=== PATIENT | female | born 1990 | race African-American/Black ===

== ENCOUNTER 2022-05-16 08:53 | Emergency (ER) | payer OTHER ==
[~2022-05-16] VITALS: Ht 167.6 cm; Wt 127.0 kg
[2022-05-16 09:55] LABS: BILIRUBIN,URINE NEGATIVE (NEGATIVE); COLOR,URINE YELLOW (YELLOW); LEUKOCYTE ESTERASE ,URINE MODERATE (NEGATIVE); NITRITE, URINE NEGATIVE (NEGATIVE); PH,URINE 7.5 (5.0-8.0); PROTEIN,URINE TRACE mg/dl (NEGATIVE); UGLUCOSE NEGATIVE (NEGATIVE); UROBILINOGEN,URINE 0.2 EU/dL (0.2)
[2022-05-16] MEDS ORDERED: FAMOTIDINE/PF INJ 20 MG/2 ML VIAL IV ONE ×2 (10:00→10:10)
[2022-05-16] MEDS ORDERED: IV NS 0.9% 1,000 ML BAG IV ONE (10:00)
[2022-05-16] MEDS ORDERED: MAG HYDROX/AL HYDROX/SIMETH 30 ML UDC PO ONE (10:00)
[2022-05-16] MEDS ORDERED: ONDANSETRON HCL/PF 4 MG/2 ML VIAL IVP ONE (10:00)
[2022-05-16] MEDS ORDERED: ONDANSETRON HCL/PF 4 MG/2 ML VIAL ONE (10:10)
[2022-05-16] MEDS ORDERED: MAG HYDROX/AL HYDROX/SIMETH 30 ML UDC ONE (10:10)
[2022-05-16 10:18] LABS: BACTERIA,URINE 3+ /HPF (None Seen)
--- NOTE | 2022-05-16 10:18 | NUR ---
IV LINE ESTABLISHED ON RAC #20, BLOOD DRAWN AND SENT TO LAB
[2022-05-16 10:19] LABS: SQUAMOUS EPITHELIAL CELL,UR Few /HPF (None Seen)
--- NOTE | 2022-05-16 10:22 | NUR ---
PT TAKEN TO RADIOLOGY FOR CT
[2022-05-16 10:55] LABS: BASOPHILS # (AUTO) 0.1 K/uL (0.0-0.2); BASOPHILS % (AUTO) 0.5 % (0.0-2.0); EOSINOPHILS % (AUTO) 0.8 % (0.0-6.0); HEMATOCRIT 39 % (33-45); HEMOGLOBIN 12.7 g/dL (11.5-14.8); LYMPHOCYTES # (AUTO) 2.3 K/uL (0.8-4.8); MEAN CORPUSCULAR HGB CONC 33 g/dl (31.0-36.0); MEAN CORPUSCULAR VOLUME 87 fL (82-100); MONOCYTES # (AUTO) 0.7 K/uL (0.1-1.30); MONOCYTES % (AUTO) 6.1 % (2.0-12.0); NEUTROPHILS # (AUTO) 8.5 K/uL (1.8-8.9); NEUTROPHILS % (AUTO) 72.6 % (43.0-81.0); PLATELET COUNT (AUTO) 399 K/uL (150-450); RED BLOOD CELL COUNT(AUTO) 4.48 MIL/uL (4.0-5.2); WHITE BLOOD COUNT (AUTO) 11.7 K/uL (4.3-11.0)
[2022-05-16 10:59] LABS: CREATININE 0.7 mg/dL (0.6-1.3); POTASSIUM 4.1 mmol/L (3.5-5.1)
[2022-05-16] MEDS ORDERED: KETOROLAC TROMETHAMINE INJ 30 MG/ML VIAL IV ONE ×2 (11:00→12:00)
[2022-05-16] MEDS ORDERED: CEFTRIAXONE 1 G in IV D5W 50 ML IV ONE (11:00)
[2022-05-16 11:02] LABS: ALBUMIN 3.3 g/dL (3.4-5.0); BILIRUBIN,DIRECT 0.1 mg/dL (0.0-0.2); BILIRUBIN,TOTAL 0.5 mg/dL (0.2-1.0); TOTAL PROTEIN, SERUM 7.6 g/dL (6.4-8.2)
[2022-05-16] MEDS ORDERED: KETOROLAC TROMETHAMINE INJ 30 MG/ML VIAL ONE ×2 (11:23→12:03)
[2022-05-16] MEDS ORDERED: CEFTRIAXONE 1GM BAG (ER ONLY) 50 ML IV ONE (11:23)
[2022-05-16] MEDS ORDERED: HYDR-4303 PO (12:02)
[2022-05-16] MEDS ORDERED: NITR100C PO (12:02)
[2022-05-16] MEDS ORDERED: ONDA4TAB5 PO (12:02)
[2022-05-16] MEDS ORDERED: IBUP-2413 PO (12:02)
--- NOTE | 2022-05-16 12:16 | NUR ---
SECOND TORADOL SHOT ADMINISTERED INDICATED; PER MD, MONITOR PT'S PAIN AT THIS TIME BEFORE D/C.
--- NOTE | 2022-05-16 13:06 | NUR ---
IV removed. Catheter intact and site benign. Pressure and 4x4 applied to site. No bleeding noted.Patient discharged to home in stable condition. Written and verbal after care instructions given. Patient verbalizes understanding of instruction.
[2022-05-16 13:20] VITALS: BP 136/82
== END 2022-05-16 13:20 | disposition home or self-care (01) ==
LOC: ER 08:59
DX: N20.0 Calculus of kidney (principal); N39.0 Urinary tract infection, site not specified; Z90.49 Acquired absence of other specified parts of digestive tract; Z88.0 Allergy status to penicillin; Z79.899 Other long term (current) drug therapy
CPT/HCPCS: 99284; 74176; 96365; 96375; 96361; 96376; 85025; 80048; 87077; 87086; 83690; 80076; 84703; 81001; 36415; J3490; J0696 ×2; J1885 ×2; J2405; J7060; J7030

== ENCOUNTER 2022-08-06 17:31 | Inpatient (IN) | payer OTHER ==
[~2022-08-06] VITALS: Ht 172.7 cm; Wt 154.2 kg
[~2022-08-06 17:31] MED LIST: HYDR-4303 PO; IBUP-2413 PO; NITR100C PO; ONDA4TAB5 PO
--- NOTE | 2022-08-06 17:40 | NUR ---
RECEIVED PT 32 YRS FEMALE CAME FROM HOME C/O NAUSEA AND VOMITION X 1DAY TODAY
--- NOTE | 2022-08-06 18:11 | NUR ---
UA SENT TO LAB
[2022-08-06] MEDS ORDERED: KETOROLAC TROMETHAMINE 15 MG/ML VIAL ONE (18:15)
[2022-08-06] MEDS ORDERED: ONDANSETRON HCL/PF 4 MG/2 ML VIAL ONE ×2 (18:15→19:58)
[2022-08-06] MEDS ORDERED: KETOROLAC TROMETHAMINE INJ 30 MG/ML VIAL IV ONE ×2 (18:30→20:30)
[2022-08-06] MEDS ORDERED: IV NS 0.9% 1,000 ML BAG IV ONE (18:30)
[2022-08-06] MEDS ORDERED: ONDANSETRON HCL/PF 4 MG/2 ML VIAL IVP ONE (18:30)
--- NOTE | 2022-08-06 18:30 | NUR ---
INSERTED ANGO CATHETER G 20 ON RT AC BLOOD DROW AND SENT TO LAB
[2022-08-06 19:01] LABS: BILIRUBIN,URINE NEGATIVE (NEGATIVE); COLOR,URINE YELLOW (YELLOW); LEUKOCYTE ESTERASE ,URINE 3+ (NEGATIVE); NITRITE, URINE NEGATIVE (NEGATIVE); PH,URINE 6.5 (5.0-8.0); PROTEIN,URINE 1+ mg/dl (NEGATIVE); UGLUCOSE NEGATIVE (NEGATIVE); UROBILINOGEN,URINE 0.2 EU/dL (0.2)
[2022-08-06 19:09] LABS: ALBUMIN 3.6 g/dL (3.4-5.0); BILIRUBIN,DIRECT 0.1 mg/dL (0.0-0.2); BILIRUBIN,TOTAL 0.4 mg/dL (0.2-1.0); CALCIUM, SERUM 8.5 mg/dL (8.5-10.1); CREATININE 1.1 mg/dL (0.6-1.3); POTASSIUM 3.3 mmol/L (3.5-5.1); TOTAL PROTEIN, SERUM 7.9 g/dL (6.4-8.2)
--- NOTE | 2022-08-06 19:34 | NUR ---
HAND OFF WILD PABLO
--- NOTE | 2022-08-06 19:34 | NUR ---
TO CT MALONE OF ABDOMIN HOANG TAPIA
[2022-08-06] MEDS ORDERED: ONDANSETRON HCL/PF 4 MG/2 ML VIAL IV ONE (19:40)
[2022-08-06 19:51] LABS: BASOPHILS % (AUTO) 0.3 % (0.0-2.0); EOSINOPHILS % (AUTO) 0.1 % (0.0-6.0); HEMATOCRIT 39 % (33-45); HEMOGLOBIN 12.5 g/dL (11.5-14.8); LYMPHOCYTES # (AUTO) 1.4 K/uL (0.8-4.8); LYMPHOCYTES % (AUTO) 9.6 % (20.0-44.0); MEAN CORPUSCULAR HGB CONC 32 g/dl (31.0-36.0); MEAN CORPUSCULAR VOLUME 89 fL (82-100); MONOCYTES # (AUTO) 0.6 K/uL (0.1-1.30); MONOCYTES % (AUTO) 4.3 % (2.0-12.0); NEUTROPHILS # (AUTO) 12.5 K/uL (1.8-8.9); NEUTROPHILS % (AUTO) 85.7 % (43.0-81.0); PLATELET COUNT (AUTO) 413 K/uL (150-450); RED BLOOD CELL COUNT(AUTO) 4.35 MIL/uL (4.0-5.2); WHITE BLOOD COUNT (AUTO) 14.6 K/uL (4.3-11.0)
[2022-08-06 19:57] LABS: BACTERIA,URINE 4+ /HPF (None Seen); RBC,URINE 51-80 /HPF (0-2); SQUAMOUS EPITHELIAL CELL,UR 21-50 /HPF (None Seen); WBC,URINE 51-80 /HPF (0-3)
--- NOTE | 2022-08-06 20:15 | NUR ---
PA ON PHONE WITH UROLOGY DR THOMPSON
[2022-08-06] MEDS ORDERED: CEFTRIAXONE 1 G in IV D5W 50 ML IV ONE (20:30)
[2022-08-06] MEDS ORDERED: TAMSULOSIN 0.4 MG CAP.SR.24H PO ONE (20:30)
[2022-08-06] MEDS ORDERED: KETOROLAC TROMETHAMINE INJ 30 MG/ML VIAL ONE (21:04)
[2022-08-06] MEDS ORDERED: CEFTRIAXONE 1GM BAG (ER ONLY) 50 ML IV ONE (21:04)
[2022-08-06] MEDS ORDERED: TAMSULOSIN 0.4 MG CAP.SR.24H ONE (21:05)
[2022-08-06] MEDS ORDERED: METOCLOPRAMIDE HCL 10 MG/2 ML VIAL ONE (21:22)
[2022-08-06] MEDS ORDERED: IV NS 0.9% 500 ML BAG IV ONE (21:30)
[2022-08-06] MEDS ORDERED: METOCLOPRAMIDE HCL 10 MG/2 ML VIAL IV ONE (21:30)
[2022-08-06] MEDS ORDERED: ACETAMINOPHEN 325 MG TABLET PO PRN (23:00)
[2022-08-06] MEDS ORDERED: MAG HYDROX/AL HYDROX/SIMETH 30 ML UDC PO PRN (23:00)
[2022-08-06] MEDS ORDERED: MAGNESIUM HYDROXIDE 30 ML UDC PO PRN (23:00)
[2022-08-06] MEDS ORDERED: ZOLPIDEM TARTRATE 5 MG TABLET PO PRN (23:00)
[2022-08-06] MEDS ORDERED: POTASSIUM CHLORIDE 20 MEQ TAB.PRT.SR PO ONE (23:00)
[2022-08-06] MEDS ORDERED: Z GUARD REMEDY 4 OZ OINT TP PRN (23:00)
--- NOTE | 2022-08-07 00:02 | NUR ---
MS 310-1
[2022-08-07] MEDS: ONDANSETRON HCL/PF 4 MG/2 ML VIAL IVP PRN ×2 (00:32→12:25)
--- NOTE | 2022-08-07 00:45 | NUR ---
REPORT GIVEN TO RICHELLE
--- NOTE | 2022-08-07 01:27 | NUR ---
PT TRANSPORTED TO ROOM 310 VIA WHEELCHAIR IN STABLE CONDITION
[2022-08-07 01:30] VITALS: BP 155/117
--- NOTE | 2022-08-07 01:30 | NUR ---
MS DIRECTOR PATIENT ACCOUNTING NOTES RECEIVED PATIENT FROM ED VIA WHEELCHAIR AT 0118 UNDER THE CARE OF LATONYA ALVAREZ NP W/ DX OF INFECTED RENAL STONE. PATIENT WAS ACCOMPANIED BY HER . INFORMATION OBTAINED FROM PATIENT AND SPOUSE. PATIENT IS A/O X4. WAS BROUGHT TO THE ER LAST FOR NEPHROLITHIASIS AND WAS ADVISED TO F/U WITH PCP BUT PT DIDN'T GO. BREATHING IS EVEN AND NON-LABORED ON ROOM AIR. C/O NAUSEA AND CONTINUOUS VOMITING. VERBALIZED SHE IS HAVING PAIN ON THE LEFT LOWER SIDE OF HER ABDOMEN AND BACK. HAS RIGHT ANTECUBITAL IV ACCESS #20G AND SALINE LOCKED. NO S/S OF INFILTRATION NOTED. AMBULATORY. V/S TAKEN. PATIENT AND SPOUSE DENIES ANY SKIN ISSUE. CURRENTLY NPO. ALL BELONGINGS ACCOUNTED FOR. ORIENTED PATIENT TO UNIT AND STAFF. DISCUSSED POC WITH SPOUSE, VERBALIZED UNDERSTANDING. SAFETY PRECAUTIONS IN PLACE: BED LOW AND LOCKED, SIDE RAILS UP X2, CALL LIGHT WITHIN REACH. WILL CONTINUE POC.
[2022-08-07] MEDS: IV NS 0.9% 1,000 ML IV PRN ×2 (01:48→18:25)
[2022-08-07] MEDS: MORPHINE SULFATE INJ 2 MG/ML DISP.SYRIN IV PRN ×3 (02:21→17:03)
--- NOTE | 2022-08-07 02:30 | NUR ---
MS RN NOTES PT C/O LEFT LOWER ABDOMINAL AND BACK PAIN 06/16. ADMINISTERED PRN MORPHINE, WILL CONTINUE TO MONITOR.
[2022-08-07 06:44] LABS: BASOPHILS % (AUTO) 0.2 % (0.0-2.0); CALCIUM, SERUM 7.9 mg/dL (8.5-10.1); CREATININE 0.8 mg/dL (0.6-1.3); HEMATOCRIT 33 % (33-45); HEMOGLOBIN 10.9 g/dL (11.5-14.8); LYMPHOCYTES # (AUTO) 1.5 K/uL (0.8-4.8); LYMPHOCYTES % (AUTO) 12.6 % (20.0-44.0); MAGNESIUM 1.8 mg/dL (1.8-2.4); MEAN CORPUSCULAR HGB CONC 33 g/dl (31.0-36.0); MEAN CORPUSCULAR VOLUME 89 fL (82-100); MONOCYTES # (AUTO) 0.5 K/uL (0.1-1.30); MONOCYTES % (AUTO) 4.6 % (2.0-12.0); NEUTROPHILS # (AUTO) 9.7 K/uL (1.8-8.9); NEUTROPHILS % (AUTO) 82.6 % (43.0-81.0); PHOSPHORUS 4.2 mg/dL (2.5-4.9); PLATELET COUNT (AUTO) 363 K/uL (150-450); POTASSIUM 3.8 mmol/L (3.5-5.1); RED BLOOD CELL COUNT(AUTO) 3.72 MIL/uL (4.0-5.2); WHITE BLOOD COUNT (AUTO) 11.7 K/uL (4.3-11.0)
[2022-08-07] MEDS ORDERED: KETOROLAC TROMETHAMINE INJ 30 MG/ML VIAL IV PRN (07:00)
--- NOTE | 2022-08-07 07:00 | NUR ---
MS RN CLOSING NOTES PATIENT LAYING IN BED ASLEEP, EASY TO AROUSE. VERBALIZED HER PAIN AND N/V IMPROVED, REFUSED ANY PRN MEDS AT THIS TIME. STABLE THROUGHOUT THE SHIFT. AFEBRILE. HAS RIGHT ANTECUBITAL IV ACCESS #20G WITH NS RUNNING AT 75 ML/HR. INTACT, PATENT AND FLUSHING. STILL ON NPO FOR POSSIBLE STENT PLACEMENT. SAFETY PRECAUTIONS MAINTAINED. WILL ENDORSE TO NEXT SHIFT FOR ERIN.
--- NOTE | 2022-08-07 07:10 | NUR ---
MS RN OPENING NOTES: RECEIVED PATIENT IN BED ASLEEP EASILY AROUSED WITH STIMULI. PATIENT A/O X3-4 AND ABLE TO VERBALIZED NEEDS. NO SOB OR CARDIAC DISTRESS NOTED ON ROOM AIR AND TOLERATING WELL. DENIES PAIN AT THIS TIME. IV ACCESS ON RAC GAUGE 20, PATENT INTACT AND INFUSING NS @75 ML/HR. MAINTAINED NPO. SAFETY MEASURES MAINTAINED: BED LOCKED AND LOWEST POSITION SIDE RAILS UP X 2. CALL ;LIGHT IN EASY REACH FOR HELP AND WILL MONITOR ACCORDINGLY.
[2022-08-07] MEDS ORDERED: POTASSIUM CHLORIDE 20 MEQ TAB.PRT.SR PO ONE (09:00)
[2022-08-07] MEDS ORDERED: CEFTRIAXONE 1 G in IV D5W 50 ML IV SCH (09:00)
[2022-08-07] MEDS: PANTOPRAZOLE 40 MG VIAL IV SCH (09:03)
[2022-08-07] MEDS: CEFTRIAXONE 2 G in IV D5W 100 ML IV SCH (09:30)
[2022-08-07] MEDS ORDERED: ANESTHESIA TRAY IN PYXIS 1 EA TRAY MC ONE (12:14)
[2022-08-07] MEDS ORDERED: SEVOFLURANE 250 ML BOTTLE IH ONE (12:22)
[2022-08-07] MEDS ORDERED: IOHEXOL 50 ML IV ONE (13:49)
--- NOTE | 2022-08-07 14:23 | NUR ---
RN NOTES: PATIENT WILL GO FOR SURGERY, PATIENT ALERT AND ORIENTED X4 AND ABLE TO VERBALIZED NEEDS. PT ACCOMPANIED BY TRANSPORTER AND RN. BELONGINGS CELLPHONE LEFT IN THE STATION PROPERLY LABELLED, JEWERLIES CARRIED BY FAMILY.
--- NOTE | 2022-08-07 15:55 | NUR ---
RN NOTES: RECEIVED PATIENT FROM SURGERY, S/P CYSTOSCOPY WITH J STENT INSERTION WITH FLUOROSCOPY. PATIENT ALERT AND ORIENTED X 4 AND ABLE TO VERBALIZED NEEDS. PT COMPLAINED MILD DISCOMFORT ON HER ABDOMEN AND COMPLAINING OF SORE THROAT , FROM GENERAL ANESTHESIA. RECEIVED ENDORSEMENT FROM BEV GAMA PT S/P CYSTOSCOPY WITH J STENT INSERTION WITH FLUOROSCOPY UNDER GENERAL ANESTHESIA, DR SANDRA SANTOS FLOMAX, RESUME REGULAR DIET. I ASKED BEV GAMA FOR POST OF OR DC INSTRUCTIONS PER RN PT IS AWARE THAT SHE NEEDS TO FOLLOW UP WITH PCP, AND UROLOGIST AND MAXIMUM STENT CAN BE INSIDE HER BODY IS 6 MONTHS AND NEEDS TO BE REMOVED, DID NOT DO SURGERY THE STONE STILL THERE, PT IS AWARE. I GAVE BACK PT'S PHONE. PROVIDED COLD WATER AND APPLE JUICE. PATIENT PEED WITH TINGED OF BLOOD. VS WNL AND WILL MONITOR ACCORDINGLY.
[2022-08-07 16:00] VITALS: BP_SYST 130; BP_SYST 134; BP_DIAS 72; BP_DIAS 80
[2022-08-07 16:30] VITALS: BP 132/82
[2022-08-07] MEDS ORDERED: MENTHOL/CETYLPYRD (CEPACOL) 1 LOZ LOZENGE PO PRN (16:30)
--- NOTE | 2022-08-07 16:30 | NUR ---
RN NOTES: PATIENT COMPLAINING SORE THROAT, INFORMED DR STATON AND ORDERED CEPACOL LOZENGES EVERY 2 HRS FOR SORE THROAT. ORDERS NOTED AND CARRIED OUT.
[2022-08-07 17:00] VITALS: BP 131/85
[2022-08-07 18:00] VITALS: BP 134/82
--- NOTE | 2022-08-07 18:43 | NUR ---
MS RN CLOSING NOTES: PATIENT IN BED, AWAKE. A/O X4 AND ABLE TO VERBALIZED NEEDS. NO SOB OR CARDIAC DISTRESS NOTED, ON PAIN MANAGEMENT ORDERED. ON ROOM AIR AND TOLERATING WELL. MAINTAINED ON REGULAR DIET AND PT ABLE TO EAT 50-75% OF HER MEAL. IV ACCESS ON RAC GAUGE 20 PATENT,INTACT AND INFUSING IV FLUID NS 1L @75ML/HR. SAFETY MEASURES MAINTAINED: BED LOCKED AND IN LOWEST POSITION, SIDE RAILS UP X 2. CALL LIGHT AND BED SIDE TABLE IN EASY REACH. ENDORSED TO FOOD PROCESSING PLANT MANAGER RN FOR CONTINUITY OF CARE.
--- NOTE | 2022-08-07 19:30 | NUR ---
MS RN OPENING NOTE RECEIVED PATIENT AWAKE, ALERT AND ORIENTED X4 WITH AT BEDSIDE. AFEBRILE AND NOT IN ANY FORM OF ACUTE DISTRESS. BREATHING EVEN AND NON LABORED. S/P CYSTOSCOPY WITH DOUBLE J STENT INSERTION, NO C/O PAIN OR DISCOMFORT AT THIS TIME. WITH IV ACCESS ON RAC 20G RUNNING WITH NS AT 75ML/HR. SAFETY MEASURES IN PLACE. KEPT BED IN LOCKED AND IN LOW POSITION. SIDE RAILS UP X2. ADVISED TO USE THE CALL LIGHT WHEN IN NEED OF ASSISTANCE.
[2022-08-07 20:00] VITALS: BP 102/65
[2022-08-07] MEDS: HYDROCODONE/APAP 5/325MG TABLET PO PRN (21:47)
[2022-08-07] MEDS ORDERED: TAMSULOSIN 0.4 MG CAP.SR.24H PO SCH (22:00)
[2022-08-08] MEDS: HYDROCODONE/APAP 5/325MG TABLET PO PRN (03:57)
--- NOTE | 2022-08-08 06:30 | NUR ---
MS RN CLOSING NOTE PATIENT ASLEEP BUT EASY TO AROUSE AND RESPONSIVE. AFEBRILE AND NOT IN ANY FORM OF ACUTE DISTRESS. BREATHING EVEN AND NON LABORED. S/P CYSTOSCOPY WITH DOUBLE J STENT INSERTION, MONITORED FOR ANY ADVERSE REACTION. WITH IV ACCESS ON RAC 20G RUNNING WITH NS AT 75ML/HR. MEDICATED ORDERED. OFFERED AND ENCOURAGED FLUIDS TOLERATED. SAFETY MEASURES IN PLACE. KEPT BED IN LOCKED AND IN LOW POSITION. SIDE RAILS UP X2. ADVISED TO USE THE CALL LIGHT WHEN IN NEED OF ASSISTANCE. CONSTANT VISUAL CHECK DONE TO ENSURE SAFETY. ALL NURSING NEEDS ATTENDED. ENDORSED TO INCOMING NURSE FOR CONTINUITY OF CARE.
[2022-08-08] MEDS: IV NS 0.9% 1,000 ML IV PRN (06:49)
[2022-08-08 07:00] VITALS: BP 130/72
[2022-08-08] MEDS: CEFTRIAXONE 2 G in IV D5W 100 ML IV SCH (08:16)
[2022-08-08] MEDS: MORPHINE SULFATE INJ 2 MG/ML DISP.SYRIN IV PRN (08:20)
[2022-08-08] MEDS: PANTOPRAZOLE 40 MG VIAL IV SCH (08:22)
[2022-08-08 09:01] LABS: CALCIUM, SERUM 8.3 mg/dL (8.5-10.1); CREATININE 0.8 mg/dL (0.6-1.3); POTASSIUM 3.8 mmol/L (3.5-5.1)
--- NOTE | 2022-08-08 15:33 | NUR ---
GRANTS ASSISTANT NOTE PATIENT DISCHARGED FROM FACILITY VIA AMBULANCE @ 7711. TRANSFERRED TO [facility]. REPORT GIVEN TO RECEIVING NURSE, BRI. ALL BELONGINGS AND PERSONAL ITEMS TAKEN WITH PATIENT Addendum: 08/08/22 at 1658 by TACO ELAM RN PATIENT DISCHARGED FROM FACILITY VIA PRIVATE CAR @ 1650. IV TAKEN OUT AND IV SITE FREE OF TRAUMA OR BLEEDING. ALL BELONGINGS AND PERSONAL ITEMS TAKEN WITH PATIENT.
[2022-08-08] MEDS ORDERED: ZOLP5TAB2 PO (15:48)
[2022-08-08] MEDS ORDERED: HYDR-3972 PO (15:48)
[2022-08-08] MEDS ORDERED: ONDA4TAB5 PO (15:48)
[2022-08-08] MEDS ORDERED: CEPH500C2 PO (15:48)
[2022-08-09] MEDS ORDERED: PANTOPRAZOLE 40 MG TABLET.DR PO SCH (07:30)
== END 2022-08-08 16:50 | disposition home or self-care (01) | DRG 463 ==
LOC: ER 17:36 → MED 08-07 00:44
PROVIDERS: ADMIT Nurse Practitioner Acute Care; ATTEND Nurse Practitioner Acute Care
PROC: 0T778DZ Dilation of Left Ureter with Intraluminal Device, Via Natural or Artificial Opening Endoscopic (ICD-10-PCS; principal; 2022-08-07)
DX: N13.6 Pyonephrosis (principal); K76.0 Fatty (change of) liver, not elsewhere classified; Z68.43 Body mass index [BMI] 50.0-59.9, adult; E66.01 Morbid (severe) obesity due to excess calories; E87.6 Hypokalemia; Z20.822 Contact with and (suspected) exposure to COVID-19; Z88.0 Allergy status to penicillin; Z90.49 Acquired absence of other specified parts of digestive tract; Z79.899 Other long term (current) drug therapy; Z87.442 Personal history of urinary calculi; N39.0 Urinary tract infection, site not specified; B96.89 Other specified bacterial agents as the cause of diseases classified elsewhere
CPT/HCPCS: 36415; 74018; 80048-TC; 80076-TC; 81001; 83605-TC; 83690-TC; 83735-TC; 84100-TC; 84703-TC; 85025-TC; 87081-TC; 87086-TC; A4217; C1769; C2617; C9113; C9803; G0378; J0330; J0696; J1100; J1885; J2270; J2405; J2704; J2765; J3490; J7030; J7040; J7060; Q9967

== ENCOUNTER 2022-08-27 12:50 | Emergency (ER) | payer OTHER ==
[~2022-08-27] VITALS: Ht 170.2 cm; Wt 127.9 kg
[~2022-08-27 12:50] MED LIST changes: +CEPH500C2 PO; +HYDR-3972 PO; +ZOLP5TAB2 PO
--- NOTE | 2022-08-27 13:00 | NUR ---
BIBS C/O PERSISTENT NAUSEA/VOMITING,HEMATURIA AND FLANK PAIN SINCE SHE HAD RENAL STENT PLACED 08/07/22 UPSTAIRS. AMBULATORY, PLACED ON BED, IN PAIN 10/ PS
[2022-08-27] MEDS ORDERED: IV NS 0.9% 1,000 ML BAG IV ONE (14:30)
[2022-08-27] MEDS ORDERED: MORPHINE SULFATE INJ 2 MG/ML DISP.SYRIN IV ONE (14:30)
[2022-08-27] MEDS ORDERED: ONDANSETRON HCL/PF 4 MG/2 ML VIAL IVP ONE (14:30)
[2022-08-27] MEDS ORDERED: MORPHINE SULFATE INJ 4 MG/ML DISP.SYRIN ONE (14:33)
[2022-08-27] MEDS ORDERED: ONDANSETRON HCL/PF 4 MG/2 ML VIAL ONE ×2 (14:33→16:56)
--- NOTE | 2022-08-27 14:40 | NUR ---
PATIENT TAKEN TO CT VIA [facility]
--- NOTE | 2022-08-27 15:00 | NUR ---
BLOOD DRAWN AND SENT TO LAB
[2022-08-27 15:18] LABS: BASOPHILS # (AUTO) 0.1 K/uL (0.0-0.2); BASOPHILS % (AUTO) 0.7 % (0.0-2.0); EOSINOPHILS % (AUTO) 0.2 % (0.0-6.0); HEMATOCRIT 38 % (33-45); HEMOGLOBIN 12.5 g/dL (11.5-14.8); LYMPHOCYTES # (AUTO) 1.5 K/uL (0.8-4.8); LYMPHOCYTES % (AUTO) 15.1 % (20.0-44.0); MEAN CORPUSCULAR HGB CONC 33 g/dl (31.0-36.0); MEAN CORPUSCULAR VOLUME 88 fL (82-100); MONOCYTES # (AUTO) 0.6 K/uL (0.1-1.30); MONOCYTES % (AUTO) 5.6 % (2.0-12.0); NEUTROPHILS # (AUTO) 7.9 K/uL (1.8-8.9); NEUTROPHILS % (AUTO) 78.4 % (43.0-81.0); PLATELET COUNT (AUTO) 517 K/uL (150-450); RED BLOOD CELL COUNT(AUTO) 4.37 MIL/uL (4.0-5.2); WHITE BLOOD COUNT (AUTO) 10.1 K/uL (4.3-11.0)
[2022-08-27 15:36] LABS: CALCIUM, SERUM 8.8 mg/dL (8.5-10.1); CREATININE 0.8 mg/dL (0.6-1.3); POTASSIUM 3.8 mmol/L (3.5-5.1)
[2022-08-27 15:42] LABS: ALBUMIN 3.3 g/dL (3.4-5.0); BILIRUBIN,DIRECT 0.1 mg/dL (0.0-0.2); BILIRUBIN,TOTAL 0.4 mg/dL (0.2-1.0); TOTAL PROTEIN, SERUM 7.4 g/dL (6.4-8.2)
--- NOTE | 2022-08-27 15:47 | NUR ---
URINE SAMPLE SENT TO LAB
[2022-08-27 16:47] LABS: BILIRUBIN,URINE NEGATIVE (NEGATIVE); COLOR,URINE YELLOW (YELLOW); LEUKOCYTE ESTERASE ,URINE 1+ (NEGATIVE); NITRITE, URINE NEGATIVE (NEGATIVE); PH,URINE 8.5 (5.0-8.0); PROTEIN,URINE 1+ mg/dl (NEGATIVE); UGLUCOSE NEGATIVE (NEGATIVE); UROBILINOGEN,URINE 0.2 EU/dL (0.2)
[2022-08-27] MEDS ORDERED: ONDANSETRON HCL/PF - ER 4 MG/2 ML VIAL IV ONE (17:00)
[2022-08-27] MEDS ORDERED: ONDA4TAB11 PO (17:12)
[2022-08-27] MEDS ORDERED: CEFP200T14 PO (17:12)
[2022-08-27 17:14] LABS: BACTERIA,URINE 1+ /HPF (None Seen); RBC,URINE TOO NUMEROUS TO COUN /HPF (0-2); SQUAMOUS EPITHELIAL CELL,UR Few /HPF (None Seen); WBC,URINE 21-50 /HPF (0-3)
[2022-08-27 18:02] VITALS: BP 120/70
== END 2022-08-27 17:45 | disposition home or self-care (01) ==
LOC: ER 13:05
DX: N39.0 Urinary tract infection, site not specified (principal); R10.12 Left upper quadrant pain; R11.2 Nausea with vomiting, unspecified; Z87.442 Personal history of urinary calculi; Z90.49 Acquired absence of other specified parts of digestive tract; Z88.0 Allergy status to penicillin; Z79.899 Other long term (current) drug therapy
CPT/HCPCS: 99284; 74176; 96374; 96361; 96375; 96376; 85025; 80048; 87086; 83690; 80076; 84703; 81001; 36415; J2270; J2405 ×2; J7030

== ENCOUNTER 2022-10-24 21:43 | Inpatient (IN) | payer OTHER ==
[~2022-10-24] VITALS: Ht 167.6 cm; Wt 127.0 kg
[~2022-10-24 21:43] MED LIST changes: +CEFP200T14 PO; +ONDA4TAB11 PO
[2022-10-24] MEDS ORDERED: IV NS 0.9% 500 ML BAG IV ONE (23:00)
[2022-10-24] MEDS ORDERED: ONDANSETRON HCL/PF 4 MG/2 ML VIAL IVP ONE (23:00)
[2022-10-24] MEDS ORDERED: KETOROLAC TROMETHAMINE INJ 30 MG/ML VIAL IV ONE (23:00)
--- NOTE | 2022-10-24 23:00 | NUR ---
BIBWIFE. NAUSEA, VOMMITING AND LOWER BACK PAIN X YESTERDAY. DX WITH KIDNEY STONES IN AUGUST 2022 WITH STENT PLACEMENT B8UT HAS BEEN UNABLE TO FOLLOW UP WITH UROLOGY. DENIES ANY URINARY COMPLAINTS OR FEVERS. AWAKE AND ALERTX4 BREATHING UNLABORED. CHAGED INTO GOWN AND PLACED ON MONITOR AND V/S WNL.
[2022-10-24] MEDS ORDERED: ONDANSETRON HCL/PF 4 MG/2 ML VIAL ONE (23:02)
[2022-10-24] MEDS ORDERED: KETOROLAC TROMETHAMINE INJ 30 MG/ML VIAL ONE (23:02)
--- NOTE | 2022-10-24 23:13 | NUR ---
20g IV STARTED AT RAC. BLOOD DRAWN AND SENT TO LAB
[2022-10-24 23:25] LABS: BASOPHILS % (AUTO) 0.2 % (0.0-2.0); EOSINOPHILS % (AUTO) 0.2 % (0.0-6.0); HEMATOCRIT 41 % (33-45); HEMOGLOBIN 13.4 g/dL (11.5-14.8); LYMPHOCYTES # (AUTO) 2.1 K/uL (0.8-4.8); LYMPHOCYTES % (AUTO) 13.3 % (20.0-44.0); MEAN CORPUSCULAR HGB CONC 32 g/dl (31.0-36.0); MEAN CORPUSCULAR VOLUME 86 fL (82-100); MONOCYTES % (AUTO) 6.5 % (2.0-12.0); NEUTROPHILS # (AUTO) 12.6 K/uL (1.8-8.9); NEUTROPHILS % (AUTO) 79.8 % (43.0-81.0); PLATELET COUNT (AUTO) 508 K/uL (150-450); RED BLOOD CELL COUNT(AUTO) 4.79 MIL/uL (4.0-5.2); WHITE BLOOD COUNT (AUTO) 15.8 K/uL (4.3-11.0)
[2022-10-24 23:27] LABS: BILIRUBIN,URINE 2+ (NEGATIVE); COLOR,URINE YELLOW (YELLOW); LEUKOCYTE ESTERASE ,URINE 3+ (NEGATIVE); NITRITE, URINE NEGATIVE (NEGATIVE); PH,URINE 5.5 (5.0-8.0); PROTEIN,URINE 1+ mg/dl (NEGATIVE); UGLUCOSE NEGATIVE (NEGATIVE); UROBILINOGEN,URINE 0.2 EU/dL (0.2)
--- NOTE | 2022-10-24 23:45 | NUR ---
TRANSPORTED TO CT VIA [facility]
[2022-10-24 23:55] LABS: CALCIUM, SERUM 9.4 mg/dL (8.5-10.1); CREATININE 1.1 mg/dL (0.6-1.3); POTASSIUM 3.3 mmol/L (3.5-5.1)
[2022-10-25 00:11] LABS: BACTERIA,URINE Few /HPF (None Seen); SQUAMOUS EPITHELIAL CELL,UR Few /HPF (None Seen)
[2022-10-25 00:12] LABS: WBC,URINE 21-50 /HPF (0-3)
[2022-10-25] MEDS ORDERED: MORPHINE SULFATE INJ 4 MG/ML DISP.SYRIN ONE (00:29)
[2022-10-25] MEDS ORDERED: CIPROFLOXACIN IV RTU 200 ML IV ONE (00:29)
[2022-10-25] MEDS ORDERED: MORPHINE SULFATE INJ 2 MG/ML DISP.SYRIN IV ONE (00:30)
[2022-10-25] MEDS ORDERED: CIPROFLOXACIN IV RTU 400 MG in PREMIX 1 EA IV SCH (00:30)
[2022-10-25] MEDS ORDERED: ONDANSETRON HCL/PF 4 MG/2 ML VIAL ONE (00:38)
[2022-10-25] MEDS ORDERED: ONDANSETRON HCL/PF 4 MG/2 ML VIAL IV ONE (01:00)
[2022-10-25 01:10] LABS: ALBUMIN 3.8 g/dL (3.4-5.0); BILIRUBIN,DIRECT 0.2 mg/dL (0.0-0.2); BILIRUBIN,TOTAL 0.5 mg/dL (0.2-1.0); TOTAL PROTEIN, SERUM 8.6 g/dL (6.4-8.2)
[2022-10-25] MEDS ORDERED: MAG HYDROX/AL HYDROX/SIMETH 30 ML UDC ONE (01:48)
--- NOTE | 2022-10-25 01:50 | NUR ---
bayron collected and sent to lab
[2022-10-25] MEDS ORDERED: METOCLOPRAMIDE HCL 10 MG/2 ML VIAL ONE (01:58)
[2022-10-25] MEDS ORDERED: MAG HYDROX/AL HYDROX/SIMETH 30 ML UDC PO ONE (02:00)
[2022-10-25] MEDS ORDERED: METOCLOPRAMIDE HCL 10 MG/2 ML VIAL IV ONE (02:00)
--- NOTE | 2022-10-25 03:08 | NUR ---
MS 116-1
--- NOTE | 2022-10-25 03:38 | NUR ---
REPORT GIVEN TO DULCE
--- NOTE | 2022-10-25 04:35 | NUR ---
RN ADMITTING NOTE Received patient from ER via gurney accompanied by Laura PABLO and EMT, ambulated to bed with steady gait, pt AAO x 4, in no acute distress, breathing unlabored, saturation at 99% on room air, HR is 64. IV line at RAC 20g patent and flushing well, no s/s of infection or infiltration. Comprehensive assessment performed, no skin issues noted. Safety measures in place, bed is locked and at lowest position, HOB elevated, call light within reach of patient. Will continue to monitor. Awaiting MD orders.
--- NOTE | 2022-10-25 04:36 | NUR ---
PT TRANSPORTED TO 116 VIA GURNEY IN STABLE CONDITION
[2022-10-25 04:54] VITALS: BP 156/99
--- NOTE | 2022-10-25 04:57 | NUR ---
RN NOTE Dr Orta made aware patient now at unit. Awaiting admitting orders.
[2022-10-25] MEDS ORDERED: KETOROLAC TROMETHAMINE INJ 30 MG/ML VIAL IV PRN (06:00)
[2022-10-25] MEDS: IV NS 0.9% 1,000 ML IV PRN ×2 (06:16→17:25)
[2022-10-25] MEDS: MORPHINE SULFATE INJ 2 MG/ML DISP.SYRIN IV PRN ×4 (06:16→21:33)
[2022-10-25] MEDS: ENOXAPARIN SODIUM 40 MG/0.4 ML DISP.SYRIN SQ SCH (06:17)
[2022-10-25 08:00] VITALS: BP 143/88
[2022-10-25] MEDS: CIPROFLOXACIN IV RTU 400 MG in PREMIX 1 EA IV SCH ×2 (08:18→20:59)
[2022-10-25] MEDS: ACETAMINOPHEN 325 MG TABLET PO PRN (08:54)
[2022-10-25 16:00] VITALS: BP 135/67
--- NOTE | 2022-10-25 18:57 | NUR ---
RN OPENING NOTE PATIENT AWAKE SITTING IN HER BED, ON ROOM AIR O2 SAT 98% TOLERATING WELL ON ROOM AIR. PATIENT IS A/O X4. WILL MONITOR THE PATIENT THROUGHOUT THE SHIFT.
--- NOTE | 2022-10-25 18:58 | NUR ---
RN CLOSING NOTE PATIENT AWAKE SITTING IN HER BED, ON ROOM AIR O2 SAT 98% TOLERATING WELL ON ROOM AIR. PATIENT IS A/O X4. NO S/S OF SOB OR DISTRESS NOTED DURING THE SHIFT. PATIENT HAS LEFT FLANK PAIN DUE TO DISLODGED URETERAL STENT. PATIENT NEEDS PAIN MANAGEMENT MORPHINE 2 MG Q4 HRS PRN ADMINISTERED TO PATIENT TODAY 2 TIMES. WORKED WELL FOR PATIENT, SHE WAS SATISFIED. ALL SAFETY PRECAUTIONS IMPLEMENTED AND WILL INDORSE THE PATIENT TO [facility] PM NURSE FOR ERIN.
--- NOTE | 2022-10-25 19:00 | NUR ---
PATIENT STATED THAT SHE NOTED SOME SPOTTING WHEN SHE USED THE RESTROOM, AND IT IS NOT HER MENSTRUAL TIME NOW. DR. AMADOR NOTIFIED VIA TEXT MESSAGE ALSO THE REGIONAL DRIVER NURSE.
--- NOTE | 2022-10-25 19:30 | NUR ---
MS RN OPENING NOTE RECEIVED PATIENT FROM AM NURSE; ALERT AND ORIENTED X 4, ABLE TO MAKE NEEDS KNOWN; ON ROOM AIR BREATHING EVENLY AND NO RESPIRATORY DISTRESS NOTED; WITH IV ACCESS ON RAC G20 RUNNING WITH NS AT 75 ML/HR; ENCOURAGED VERBALIZATION OF NEEDS; SAFETY MEASURES IMPLEMENTED, BED IN LOW POSITION, LOCKED, SIDE RAILS UP X 2, CALL LIGHT WITHIN REACH; WILL CONTINUE TO MONITOR THROUGHOUT SHIFT
[2022-10-25 20:00] VITALS: BP 150/90
[2022-10-25] MEDS: ONDANSETRON HCL/PF 4 MG/2 ML VIAL IVP PRN (21:28)
--- NOTE | 2022-10-25 21:40 | NUR ---
MS RN NOTE PATIENT COMPLAINED OF PAIN WITH A SCORE OF 8/10, ADMINISTERED MORPHINE PRN ORDERED. PATIENT ALSO COMPLAINED OF NAUSEOUS FEELING AND WANTED TO TAKE MEDICATION FOR NAUSEA, ADMINISTERED ZOFRAN PRN. PATIENT TOLERATED WELL AND IS CURRENTLY SLEEPING
[2022-10-26] MEDS: ONDANSETRON HCL/PF 4 MG/2 ML VIAL IVP PRN ×3 (03:00→18:24)
[2022-10-26] MEDS: MORPHINE SULFATE INJ 2 MG/ML DISP.SYRIN IV PRN ×3 (03:00→17:53)
--- NOTE | 2022-10-26 03:30 | NUR ---
MS RN NOTE PATIENT WOKE UP AROUND 0240H AND WENT TO THE RESTROOM TO PEE. AFTERWARDS, PATIENT COMPLAINED OF PAIN AND NAUSEOUS FEELING. INFORMED HER THAT THE NEXT DOSE OF ZOFRAN WILL BE AT 0330H BUT INSISTED TO TAKE THE MEDICATION EARLIER. CHARGE NURSE MADE AWARE. GAVE MORPHINE AND ZOFRAN PRN AT 0300H; PATIENT IN BED, TOLERATED WELL; WILL CONTINUE TO MONITOR
[2022-10-26 04:00] VITALS: BP 150/90
[2022-10-26] MEDS: ENOXAPARIN SODIUM 40 MG/0.4 ML DISP.SYRIN SQ SCH (06:00)
--- NOTE | 2022-10-26 06:03 | NUR ---
MS RN NOTE PATIENT HAD AN EPISODE OF SPOTTING EARLIER. HENCE LOVENOX DOSE HELD PER MD. CHARGE NURSE MADE AWARE.
[2022-10-26 06:10] LABS: BASOPHILS # (AUTO) 0.1 K/uL (0.0-0.2); BASOPHILS % (AUTO) 0.7 % (0.0-2.0); EOSINOPHILS % (AUTO) 0.6 % (0.0-6.0); HEMATOCRIT 39 % (33-45); HEMOGLOBIN 12.5 g/dL (11.5-14.8); LYMPHOCYTES # (AUTO) 1.7 K/uL (0.8-4.8); LYMPHOCYTES % (AUTO) 14.3 % (20.0-44.0); MEAN CORPUSCULAR HGB CONC 32 g/dl (31.0-36.0); MEAN CORPUSCULAR VOLUME 87 fL (82-100); NEUTROPHILS # (AUTO) 9.2 K/uL (1.8-8.9); NEUTROPHILS % (AUTO) 76.4 % (43.0-81.0); PLATELET COUNT (AUTO) 425 K/uL (150-450); RED BLOOD CELL COUNT(AUTO) 4.46 MIL/uL (4.0-5.2)
[2022-10-26 06:39] LABS: CALCIUM, SERUM 8.7 mg/dL (8.5-10.1); CREATININE 1.1 mg/dL (0.6-1.3); PHOSPHORUS 2.9 mg/dL (2.5-4.9); POTASSIUM 3.3 mmol/L (3.5-5.1)
[2022-10-26] MEDS: IV NS 0.9% 1,000 ML IV PRN ×2 (06:48→22:53)
--- NOTE | 2022-10-26 06:55 | NUR ---
MS RN CLOSING NOTE PATIENT IN BED, ALERT AND ORIENTED X 4, ABLE TO MAKE NEEDS KNOWN; ON ROOM AIR BREATHING EVENLY AND NO RESPIRATORY DISTRESS NOTED; WITH IV ACCESS ON RAC G20 RUNNING WITH NS AT 75 ML/HR, INFUSING WELL; ADMINISTERED MEDICATIONS PRESCRIBED; PATIENT'S NEEDS ATTENDED; MONITORED PATIENT ACCORDINGLY; SAFETY MEASURES IMPLEMENTED, BED IN LOW POSITION, LOCKED, SIDE RAILS UP X 2, CALL LIGHT WITHIN REACH; WILL ENDORSE TO AM NURSE FOR ERIN.
--- NOTE | 2022-10-26 07:21 | NUR ---
MS RN OPENING NOTE RECEIVED PATIENT IN BED, ASLEEP, ALERT AND ORIENTED X 4, ABLE TO MAKE NEEDS KNOWN; ON ROOM AIR BREATHING EVENLY AND NO RESPIRATORY DISTRESS NOTED; WITH IV ACCESS ON RAC G20 RUNNING WITH NS AT 75 ML/HR; IV INTACT, PATENT AND FLUSHING WELL. ALL SAFETY MEASURES IMPLEMENTED, BED IN LOW POSITION, LOCKED, SIDE RAILS UP X 2, CALL LIGHT WITHIN REACH;
[2022-10-26 08:00] VITALS: BP 132/73
[2022-10-26] MEDS ORDERED: POTASSIUM CHLORIDE 20 MEQ POWDER PACKET PO SCH (08:00)
[2022-10-26] MEDS: CIPROFLOXACIN IV RTU 400 MG in PREMIX 1 EA IV SCH ×2 (08:03→20:53)
[2022-10-26] MEDS ORDERED: POTASSIUM CHLORIDE 20 MEQ POWDER PACKET PO ONE ×2 (08:30→10:30)
[2022-10-26] MEDS ORDERED: POTASSIUM CL. PREMIX PERIPHER. 50 ML IV SCH (09:30)
--- NOTE | 2022-10-26 09:53 | NUR ---
rn note morphine prn given due to pt complaining of 8/10 pain in back.pt alert and oriented x4.
--- NOTE | 2022-10-26 09:54 | NUR ---
rn note 1 20 meq potassium packet given, 2nd dose ordered but pt cant tolerate it. pt asked if potassium powder packet can be switched to potassium iv. notified pharmacy. pharmacy said jeri to switch Addendum: 10/26/22 at 1028 by BALAJI MORGAN RN pt cant tolerate potassium iv, pt asked to be switched to powder. pharmacist said jeri
--- NOTE | 2022-10-26 12:53 | NUR ---
rn note pt had question regarding diet order. pt currently on clear liquid diet. pt asked if she is not having surgery why is she on a clear liquid diet. explained to patient that pt has episodes of nausea vomiting, and to see if clear liquid diet can be tolerated then can be advanced to other diet.pt verbalized understanding
[2022-10-26] MEDS: ACETAMINOPHEN 325 MG TABLET PO PRN (15:58)
[2022-10-26 16:00] VITALS: BP 142/72
--- NOTE | 2022-10-26 19:05 | NUR ---
rn note pt requested mashed potatoes. explained to pt that because pt is on clear liquid diet can not have mashed potatoes at this time. called kitchen. kitchen cant make mashed potatoes due to current diet order. pt strongly requested hunter crackers after explaining the risks of it. pt verbalized understanding and to clarify with doctor about advancing diet order
--- NOTE | 2022-10-26 19:30 | NUR ---
RN NOTE RECEIVED PT IN BED, AAOX4. VERBALLY RESPONSIVE. ON RA, WELL SILVANA, NO SOB/NO ACUTE RESP DISTRESS NOTED. DENIES PAIN/DISCOMFORT AT THIS TIME. IV ACCESS ON RAC #20 SECURED, PATENT, CURRENTLY RUNNING NS AT 75ML/HR, NO S/SX OF COMPLICATIONS NOTED. PT IS AMBULATORY. FALL PRECAUTIONS AND SAFETY PRECAUTIONS IMPLEMENTED AT ALL TIMES. CALL LIGHT WITHIN EASY REACH. FAMILY MEMBER AT BEDSIDE. WILL CONT POC.
--- NOTE | 2022-10-26 19:33 | NUR ---
MS RN CLOSING NOTE PATIENT IN BED, ASLEEP, ALERT AND ORIENTED X 4, ABLE TO MAKE NEEDS KNOWN, VERBALLY RESPONSIVE; ON ROOM AIR BREATHING EVENLY AND NO RESPIRATORY DISTRESS NOTED; NO PAIN OR DISCOMFORT NOTED AT THIS TIME. IV ACCESS ON RAC G20 RUNNING WITH NS AT 75 ML/HR; IV INTACT, PATENT AND FLUSHING WELL. PT AMBULATORY. ALL SAFETY MEASURES IMPLEMENTED, BED IN LOW POSITION, LOCKED, SIDE RAILS UP X 2, CALL LIGHT WITHIN REACH;
[2022-10-26 20:00] VITALS: BP 155/84
[2022-10-27] MEDS: ONDANSETRON HCL/PF 4 MG/2 ML VIAL IVP PRN ×2 (03:01→09:37)
[2022-10-27] MEDS: MORPHINE SULFATE INJ 2 MG/ML DISP.SYRIN IV PRN ×2 (03:01→09:37)
[2022-10-27 04:00] VITALS: BP 136/82
[2022-10-27] MEDS: ENOXAPARIN SODIUM 40 MG/0.4 ML DISP.SYRIN SQ SCH (06:06)
--- NOTE | 2022-10-27 06:34 | NUR ---
RN NOTE PT REMAINS IN STABLE CONSITION, NO SIGNIFICANT CHANGES NOTED THROUGHOUT THE SHIFT. ALL NEEDS ATTENDED. ALL DUE MEDICATIONS GIVEN ORDERED. SAFETY PRECAUTIONS IMPLEMENTED AT ALL TIMES. CALL LIGHT WITHIN EASY REACH WILL ENDORSE TO AM SHIFT.
--- NOTE | 2022-10-27 07:20 | NUR ---
DENTAL ASSISTANT TEACHER OPENING NOTES Received pt awake in bed AOx4. No complaints of pain or discomfort at this time. Pt is on RA and tolerating it well. IV access on LAC 20G patent and intact. HOB elevated to pts comfort. Siderails up at all times x2. Call light within reach. Will continue to monitor.
--- NOTE | 2022-10-27 07:39 | NUR ---
RN NOTE IV ACCESS ON RAC #20 NOTED LEAKING, NO S/SX OF INFX/INFILTRATION, REMOVED IV SITE. INSERTED NEW IV ACCESS ON LAC #20, PATENT, SECURED AND INTACT.
[2022-10-27] MEDS: CIPROFLOXACIN IV RTU 400 MG in PREMIX 1 EA IV SCH (08:13)
[2022-10-27 10:15] LABS: BASOPHILS % (AUTO) 0.5 % (0.0-2.0); EOSINOPHILS % (AUTO) 1.8 % (0.0-6.0); HEMATOCRIT 37 % (33-45); HEMOGLOBIN 11.9 g/dL (11.5-14.8); LYMPHOCYTES # (AUTO) 1.6 K/uL (0.8-4.8); MEAN CORPUSCULAR HGB CONC 33 g/dl (31.0-36.0); MEAN CORPUSCULAR VOLUME 88 fL (82-100); MONOCYTES # (AUTO) 0.6 K/uL (0.1-1.30); MONOCYTES % (AUTO) 7.6 % (2.0-12.0); NEUTROPHILS # (AUTO) 5.1 K/uL (1.8-8.9); NEUTROPHILS % (AUTO) 68.1 % (43.0-81.0); PLATELET COUNT (AUTO) 387 K/uL (150-450); RED BLOOD CELL COUNT(AUTO) 4.18 MIL/uL (4.0-5.2); WHITE BLOOD COUNT (AUTO) 7.4 K/uL (4.3-11.0)
[2022-10-27 10:50] LABS: CALCIUM, SERUM 8.6 mg/dL (8.5-10.1); CREATININE 1.1 mg/dL (0.6-1.3)
[2022-10-27] MEDS ORDERED: POTASSIUM CHLORIDE 20 MEQ TAB.PRT.SR PO ONE (12:30)
[2022-10-27] MEDS ORDERED: LEVO500T90 PO (12:48)
[2022-10-27] MEDS ORDERED: ONDA4TAB5 PO (12:49)
--- NOTE | 2022-10-27 14:00 | NUR ---
REPLANTING MACHINE CREWMAN NOTES Pt discharged to home. Picked up by Jessica. All medical information given to pt with discharge instructions. Pt and verbalized understanding. IV access taken out.
== END 2022-10-27 15:00 | disposition home or self-care (01) | DRG 463 ==
LOC: ER 21:44 → MEDSG1 10-25 03:17
PROVIDERS: ADMIT Internal Medicine; ATTEND Internal Medicine
DX: N13.6 Pyonephrosis (principal); E87.6 Hypokalemia; Z96.0 Presence of urogenital implants; Z20.822 Contact with and (suspected) exposure to COVID-19; Z90.49 Acquired absence of other specified parts of digestive tract; Z88.0 Allergy status to penicillin; Z79.899 Other long term (current) drug therapy; Z87.442 Personal history of urinary calculi; N20.0 Calculus of kidney
CPT/HCPCS: 36415; 80048-TC; 80061-TC; 80076-TC; 81001; 83690-TC; 83735-TC; 84100-TC; 84703-TC; 85025-TC; 85730-TC; 87081-TC; 87086-TC; A4216; A4223; G0378; J0744; J1650; J1885; J2270; J2405; J2765; J3480; J7030; J7040